=== PATIENT | female | born 1965 | race Caucasian/White ===

== ENCOUNTER 2019-01-14 06:26 | Inpatient (IN) | payer OTHER ==
[~2019-01-14] VITALS: Ht 180.3 cm; Wt 93.5 kg
[2019-01-14 07:43] VITALS: BP 108/75
[2019-01-14 08:45] LABS: BASOPHILS # (AUTO) 0.03 x10^3/uL (0-0.1); BASOPHILS % (AUTO) 1 % (0-1); EOSINOPHILS # (AUTO) 0.03 x10^3/uL (0-0.4); EOSINOPHILS % (AUTO) 1 % (1-7); LYMPHOCYTES # (AUTO) 0.43 x10^3/uL (1-3.4); LYMPHOCYTES % (AUTO) 12 % (22-44); MD NO; MEAN CORPUSCULAR HEMOGLOBIN 32.3 pg (27.0-34.8); MEAN CORPUSCULAR HGB CONC 32.6 g/dL (32.4-35.8); MEAN CORPUSCULAR VOLUME 99.3 fL (80-100); MEAN PLATELET VOLUME 6.4 fL (7.4-10.4); MONOCYTES % (AUTO) 17 % (2-9); NEUTROPHILS # (AUTO) 2.52 x10^3/uL (1.8-6.8); NEUTROPHILS % (AUTO) 70 % (42-75); PLATELET COUNT 146 x10^3/uL (130-400); RED BLOOD COUNT 3.57 x10^6/uL (3.82-5.3); RED CELL DISTRIBUTION WIDTH 17.9 % (9.6-15.2)
[2019-01-14 08:58] LABS: ALANINE AMINOTRANSFERASE 11 U/L (12-78); ALBUMIN 2.2 g/dL (3.4-5.0); ANION GAP 10 mmol/L (5-15); CALCIUM 7.9 mg/dL (8.5-10.1); CHLORIDE 106 mmol/L (98-107); CREATININE 0.62 mg/dL (0.55-1.02)
[2019-01-14 09:01] LABS: ALKALINE PHOSPHATASE 54 U/L (45-117); BILIRUBIN,TOTAL 0.3 mg/dL (0.2-1.0); TOTAL PROTEIN 5.5 g/dL (6.4-8.2)
[2019-01-14] MEDS ORDERED: ONDANSETRON ODT 4 MG PO PRN (11:00)
[2019-01-14] MEDS ORDERED: PROMETHAZINE 25 MG/ML, 1ML IM PRN (11:00)
[2019-01-14] MEDS ORDERED: LABETALOL 5 MG/ML SYRINGE IVPush PRN (11:00)
[2019-01-14] MEDS ORDERED: HYDROcodone/APAP 5/325 TABLET PO PRN (11:00)
[2019-01-14] MEDS ORDERED: morphine SULFATE 10 MG/ML, 1ML IVPush PRN (11:00)
[2019-01-14] MEDS ORDERED: ONDANSETRON 2MG/ML, 2ML IVPush PRN (11:00)
[2019-01-14] MEDS ORDERED: ACETAMINOPHEN 325 MG TABLET PO PRN (11:00)
[2019-01-14] MEDS ORDERED: PLEASE ENTER ALLERGIES MC SCH (11:30)
[2019-01-14] MEDS ORDERED: PLEASE ENTER HEIGHT AND WEIGHT MC SCH (11:30)
[2019-01-14] MEDS ORDERED: AMPICILLIN/SULBACTAM 1,500 MG in SODIUM CHLORIDE 0.9% 50 ML IV SCH (12:30)
[2019-01-14] MEDS: SODIUM CHLORIDE 0.9% 1,000 ML IV SCH (12:36)
[2019-01-14] MEDS: POTASSIUM CHLORIDE 20 MEQ TAB.ER.PRT PO SCH ×2 (12:36→20:49)
[2019-01-14] MEDS: HEPARIN 5,000 UNITS/ML, 1ML SQ SCH ×2 (12:36→19:00)
[2019-01-14] MEDS: AMPICILLIN/SULBACTAM 1,500 MG in SODIUM CHLORIDE 0.9% 100 ML IV SCH ×2 (12:57→20:49)
[2019-01-14 13:17] VITALS: BP 114/79
[2019-01-14] MEDS ORDERED: MAGNESIUM SULFATE PMX 4GM/100M 100 ML IV ONE (13:30)
[2019-01-14 17:41] VITALS: BP 108/75
[2019-01-14 19:21] VITALS: BP 100/69
[2019-01-15 01:34] VITALS: BP 107/74
[2019-01-15] MEDS: AMPICILLIN/SULBACTAM 1,500 MG in SODIUM CHLORIDE 0.9% 100 ML IV SCH (01:34)
[2019-01-15] MEDS: HEPARIN 5,000 UNITS/ML, 1ML SQ SCH ×3 (03:00→20:14)
[2019-01-15] MEDS: SODIUM CHLORIDE 0.9% 1,000 ML IV SCH ×2 (06:17→20:14)
[2019-01-15 07:40] VITALS: BP 102/71
[2019-01-15 08:05] LABS: BASOPHILS # (AUTO) 0.02 x10^3/uL (0-0.1); BASOPHILS % (AUTO) 1 % (0-1); EOSINOPHILS # (AUTO) 0.05 x10^3/uL (0-0.4); EOSINOPHILS % (AUTO) 1 % (1-7); LYMPHOCYTES # (AUTO) 0.32 x10^3/uL (1-3.4); LYMPHOCYTES % (AUTO) 9 % (22-44); MD NO; MEAN CORPUSCULAR HEMOGLOBIN 32.5 pg (27.0-34.8); MEAN CORPUSCULAR HGB CONC 32.4 g/dL (32.4-35.8); MEAN CORPUSCULAR VOLUME 100.2 fL (80-100); MEAN PLATELET VOLUME 6.4 fL (7.4-10.4); MONOCYTES # (AUTO) 0.47 x10^3/uL (0.2-0.8); MONOCYTES % (AUTO) 14 % (2-9); NEUTROPHILS # (AUTO) 2.54 x10^3/uL (1.8-6.8); NEUTROPHILS % (AUTO) 75 % (42-75); PLATELET COUNT 152 x10^3/uL (130-400); RED CELL DISTRIBUTION WIDTH 18.2 % (9.6-15.2)
[2019-01-15 08:19] LABS: ALANINE AMINOTRANSFERASE 14 U/L (12-78); ANION GAP 6 mmol/L (5-15); CALCIUM 7.7 mg/dL (8.5-10.1); CHLORIDE 110 mmol/L (98-107)
[2019-01-15 08:21] LABS: ALKALINE PHOSPHATASE 47 U/L (45-117); BILIRUBIN,TOTAL 0.5 mg/dL (0.2-1.0); CREATININE 0.51 mg/dL (0.55-1.02); TOTAL PROTEIN 5.4 g/dL (6.4-8.2)
[2019-01-15] MEDS: POTASSIUM CHLORIDE 20 MEQ TAB.ER.PRT PO SCH ×2 (08:22→17:31)
[2019-01-15 14:40] VITALS: BP 103/72
[2019-01-15] MEDS: ACETAMINOPHEN 325 MG TABLET PO PRN (17:34)
[2019-01-15 20:00] VITALS: BP 104/70
[2019-01-16 00:20] VITALS: BP 117/77
[2019-01-16] MEDS: HEPARIN 5,000 UNITS/ML, 1ML SQ SCH ×2 (03:00→11:00)
[2019-01-16] MEDS: ACETAMINOPHEN 325 MG TABLET PO PRN ×2 (05:39→13:42)
[2019-01-16] MEDS: POTASSIUM CHLORIDE 20 MEQ TAB.ER.PRT PO SCH (07:22)
[2019-01-16 08:15] VITALS: BP 110/77
[2019-01-16] MEDS ORDERED: SODIUM CHLORIDE 0.9% 1,000 ML IV SCH (10:59)
[2019-01-16] MEDS ORDERED: ACET325T26 PO (11:46)
[2019-01-16 14:13] VITALS: BP 107/73
== END 2019-01-16 17:03 | disposition home or self-care (01) | DRG 948 ==
LOC: 4WST 07:38
PROVIDERS: ADMIT Internal Medicine; ATTEND Internal Medicine
DX: G89.3 Neoplasm related pain (acute) (chronic) (principal); N12 Tubulo-interstitial nephritis, not specified as acute or chronic; C56.9 Malignant neoplasm of unspecified ovary; E44.0 Moderate protein-calorie malnutrition; E87.6 Hypokalemia; R10.30 Lower abdominal pain, unspecified; E83.42 Hypomagnesemia; Z66 Do not resuscitate; Z90.710 Acquired absence of both cervix and uterus; Z68.28 Body mass index [BMI] 28.0-28.9, adult
CPT/HCPCS: 36415; 80053; 83735; 85025; 86304; 87040; 99285; G0378; J1644; Q0162; J0295; J3475; J7030